=== PATIENT | male | born 1960 | race Caucasian/White ===

== ENCOUNTER 2025-07-12 06:30 | Day surgery (SDC) | payer BC, SELFPAY ==
[2025-07-12 07:27] LABS: Glucose - Point of Care 113 mg/dl (70-99)
== END 2025-07-12 08:38 | disposition home or self-care (01) ==
LOC: GI 06:30
PROVIDERS: ATTENDING PHYSICIAN Internal Medicine Gastroenterology; FAMILY PHYSICIAN Physician Assistant Medical
DX: Z12.11 Encounter for screening for malignant neoplasm of colon (principal); K57.30 Diverticulosis of large intestine without perforation or abscess without bleeding; K64.8 Other hemorrhoids; Z86.0100 Personal history of colon polyps, unspecified
CPT/HCPCS: G0105; 82962